=== PATIENT | female | born 1970 | race African-American/Black ===

== ENCOUNTER 2017-06-07 13:28 | Emergency (ER) | payer MEDICAID ==
[~2017-06-07] VITALS: Ht 170.2 cm; Wt 82.0 kg
[~2017-06-07 13:28] MED LIST: ELVI1TAB2 PO
[2017-06-07 13:42] VITALS: BP 135/99
== END 2017-06-07 18:21 | disposition left against medical advice (07) ==
LOC: ER 17:44
DX: M54.2 Cervicalgia (principal); Z53.21 Procedure and treatment not carried out due to patient leaving prior to being seen by health care provider

== ENCOUNTER 2017-06-22 20:12 | Emergency (ER) | payer MEDICAID ==
[~2017-06-22] VITALS: Ht 170.2 cm; Wt 91.0 kg
[2017-06-22 20:47] VITALS: BP 149/90
== END 2017-06-22 22:52 | disposition home or self-care (01) ==
LOC: ER 20:12
DX: Z76.0 Encounter for issue of repeat prescription (principal); F17.200 Nicotine dependence, unspecified, uncomplicated; Z88.0 Allergy status to penicillin
CPT/HCPCS: 99283

== ENCOUNTER 2020-06-06 11:08 | Emergency (ER) | payer MEDICAID ==
[~2020-06-06] VITALS: Ht 165.1 cm; Wt 77.0 kg
[2020-06-06 11:18] VITALS: BP 142/76
== END 2020-06-06 12:17 | disposition home or self-care (01) ==
LOC: ER 11:20
DX: M79.601 Pain in right arm (principal); R07.9 Chest pain, unspecified; V89.2XXA Person injured in unspecified motor-vehicle accident, traffic, initial encounter; Y93.9 Activity, unspecified; Y92.410 Unspecified street and highway as the place of occurrence of the external cause; Z88.0 Allergy status to penicillin
CPT/HCPCS: 93005; 99283